=== PATIENT | female | born 1990 | race Caucasian/White ===

== ENCOUNTER 2016-06-05 17:27 | Emergency (ER) | payer SELFPAY ==
[~2016-06-05] VITALS: Ht 154.9 cm; Wt 72.6 kg
[~2016-06-05 17:27] MED LIST: HYDR473S47 PO; IBUP100T6 PO
[2016-06-05 19:15] LABS: HEMOGLOBIN 14.9 g/dL (11.7-16.4)
[2016-06-05 19:23] LABS: ASPARTATE AMINO TRANSFERASE 13 U/L (15-37); BLOOD UREA NITROGEN 9 mg/dL (7-18)
[2016-06-05 20:11] LABS: PATH.CAST-FLAG NOT PRESENT; SPERM-FLAG NOT PRESENT; SRC-FLAG NOT PRESENT; XTAL-FLAG NOT PRESENT; YLC-FLAG NOT PRESENT
[2016-06-05 22:57] VITALS: BP 103/63
== END 2016-06-05 23:46 | disposition home or self-care (01) ==
LOC: ED 21:48
DX: R10.31 Right lower quadrant pain (principal); R10.30 Lower abdominal pain, unspecified; Z90.49 Acquired absence of other specified parts of digestive tract
CPT/HCPCS: 36415; 74176; 76830; 80053; 81001; 84703; 85025

== ENCOUNTER 2016-06-08 17:00 | Emergency (ER) | payer SELFPAY ==
[~2016-06-08] VITALS: Ht 154.9 cm; Wt 71.8 kg
[2016-06-08 17:10] VITALS: BP 119/75
[2016-06-08 17:41] LABS: HEMOGLOBIN 15.6 g/dL (11.7-16.4)
[2016-06-08 17:53] LABS: ASPARTATE AMINO TRANSFERASE 12 U/L (15-37); BLOOD UREA NITROGEN 13 mg/dL (7-18)
[2016-06-08 19:34] LABS: PATH.CAST-FLAG NOT PRESENT; SPERM-FLAG NOT PRESENT; SRC-FLAG NOT PRESENT; XTAL-FLAG NOT PRESENT; YLC-FLAG NOT PRESENT
== END 2016-06-08 21:03 | disposition home or self-care (01) ==
LOC: ED 20:45
DX: K59.00 Constipation, unspecified (principal); Z90.49 Acquired absence of other specified parts of digestive tract; F17.200 Nicotine dependence, unspecified, uncomplicated
CPT/HCPCS: 36415; 74020; 80053; 81001; 83690; 84703; 85025; 87086

== ENCOUNTER 2016-09-03 22:40 | Emergency (ER) | payer SELFPAY ==
[~2016-09-03] VITALS: Ht 154.9 cm; Wt 81.3 kg
[2016-09-03] MEDS ORDERED: MECLIZINE CHEWABLE 25 MG TAB ONE (23:22)
[2016-09-03] MEDS ORDERED: SODIUM CHLORIDE 0.9% 1,000ML IVBOLUS ONE (23:30)
[2016-09-03] MEDS ORDERED: MECLIZINE CHEWABLE 25 MG TAB PO ONE (23:30)
[2016-09-03 23:36] LABS: BLOOD UREA NITROGEN 9 mg/dL (7-18)
[2016-09-04 01:23] VITALS: BP 100/63
== END 2016-09-04 01:27 | disposition home or self-care (01) ==
LOC: ED 23:59
DX: R42 Dizziness and giddiness (principal); R11.0 Nausea; Z90.49 Acquired absence of other specified parts of digestive tract
CPT/HCPCS: 36415; 80048; 81003; 85025; 96360; 99284; J7030